=== PATIENT | female | born 1960 | race Caucasian/White ===

== ENCOUNTER 2017-02-06 10:07 | Emergency (ER) | payer OTHER ==
[~2017-02-06] VITALS: Ht 152.4 cm; Wt 95.3 kg
[~2017-02-06 10:07] MED LIST: ASPIRIN325 MG PO; CELEXA20 MG PO; Coumadin,Jantoven PO; DEPRESSION PILL; Lovenox SC; PERCOCET 10/1 TABLET; PERCOCET 10/1 TABLET PO; SYNTHROID137 MCG PO; THYROID PILL
[2017-02-06 10:58] LABS: HEMATOCRIT 44.3 % (36.0-46.0); MCH 30.7 PG (29.0-34.0); MCHC 34.3 G/DL (30.0-36.0); MCV 89.5 FL (83-99); MEAN PLAT.VOLUME 9.9 uM^3 (9.5-12.4); PLATELET COUNT 244 K/uL (156-360); RBC DIS.WIDTH-CV 14.2 % (11.8-14.6); RBC DIS.WIDTH-SD 46.7 % (39-53); RED BLOOD COUNT 4.95 M/uL (3.80-5.20); WHITE BLOOD COUNT 16.3 K/uL (4.1-10.2)
[2017-02-06 11:06] LABS: CHLORIDE 102 mEq/L (99-109); POTASSIUM 4.5 mEq/L (3.7-5.4); SODIUM 136 mEq/L (136-147)
[2017-02-06 11:08] LABS: GLUCOSE 100 mg/dL (70-99)
[2017-02-06 11:09] LABS: ANION GAP 12 MEQ/L (2-14)
[2017-02-06 11:12] LABS: GFR ESTIMATE (CALCULATED) > 59 mL/min/
[2017-02-06 11:13] LABS: UREA NITROGEN (BUN) 10 mg/dL (9-23)
[2017-02-06 11:19] LABS: TROP-I INTERPRETATION NEGATIVE; TROPONIN-I < 0.01 ng/mL (0.0-0.30)
[2017-02-06] MEDS ORDERED: MAGNESIUM250 MG PO (11:27)
[2017-02-06] MEDS ORDERED: FLUOXETINE HCL60 MG PO (11:27)
[2017-02-06] MEDS ORDERED: BUPROPION XL300 MG PO (11:27)
[2017-02-06] MEDS ORDERED: ASPIRIN325 MG PO (11:27)
[2017-02-06] MEDS ORDERED: CRESTOR5 MG PO (11:28)
[2017-02-06] MEDS ORDERED: NORCO 10/3251 TABLET PO (11:28)
[2017-02-06] MEDS ORDERED: VENTOLIN HFA18 GM IH (12:14)
[2017-02-06 13:02] VITALS: BP 124/81
== END 2017-02-06 13:08 | disposition home or self-care (01) ==
LOC: EME 10:07
DX: J06.9 Acute upper respiratory infection, unspecified (principal); R51 Headache; E03.9 Hypothyroidism, unspecified; Z79.01 Long term (current) use of anticoagulants; Z79.82 Long term (current) use of aspirin; Z85.41 Personal history of malignant neoplasm of cervix uteri; F17.200 Nicotine dependence, unspecified, uncomplicated
CPT/HCPCS: 71020; 80048; 84484; 85027; 93005; 94640; 99281; 99285

== ENCOUNTER 2017-11-23 09:12 | Emergency (ER) | payer OTHER ==
[~2017-11-23] VITALS: Ht 154.9 cm; Wt 96.4 kg
[~2017-11-23 09:12] MED LIST changes: +BUPROPION XL300 MG PO; +CRESTOR5 MG PO; +FLUOXETINE HCL60 MG PO; +MAGNESIUM250 MG PO; +NORCO 10/3251 TABLET PO; +VENTOLIN HFA18 GM IH
[2017-11-23 11:14] VITALS: BP 149/99
== END 2017-11-23 11:15 | disposition home or self-care (01) ==
LOC: RME 09:12 → EME 09:12 → RME 11:15
DX: M79.605 Pain in left leg (principal); M79.89 Other specified soft tissue disorders; Z86.718 Personal history of other venous thrombosis and embolism; Z79.82 Long term (current) use of aspirin; F17.200 Nicotine dependence, unspecified, uncomplicated
CPT/HCPCS: 93971; 99281; 99283